=== PATIENT | female | born 1955 | race Caucasian/White ===

== ENCOUNTER → 2016-05-26 | Outpatient (CLI) | payer MEDICARE ==
[~2016-05-26] MED LIST: ALBUTEROL4 MG PO; AMARYL 2MG TABLE2 MG PO; ASPIRIN 81MG TA81 MG PO; AVANDAMET PO; BISOPROLOL5 MG PO; CHEWABLE ASPIRI81 MG PO; DICLOFENAC 50MG50 MG PO; FLEXERIL10 MG PO; GABAPENTIN300 MG PO; LISINOPRIL/HCTZ1 TA3 PO; METFORMIN1000 MG PO; NICOTINE PATCH1 EACH TD; ONGLYZA5 MG PO; PLAVIX75 MG PO; PRAVASTATIN SOD80 MG PO; PREDNISONE 20MG20 MG PO; TYLENOL 8 HOUR650 MG PO; ULTRAM50 MG PO
--- NOTE | 2016-06-10 14:24 | RADIOLOGY REPORT PS360 ---
US SOFT TISSUE HEAD/NECK, FNA/W GUIDANCE, US CYST ASPIRATION HISTORY: RT PAROTID MASS COMPARISON: CT scan of 05/06/2016 Ultrasound soft tissue head and neck: Prebiopsy ultrasound performed for biopsy planning demonstrates a 1.8 x 1 cm hypoechoic nodule within the right parotid gland posteriorly. In addition, there is a 1.3 x 0.6 cm complex mixed echogenic nodule within the left parotid gland. Ultrasound-guided fine-needle aspiration: Following obtaining informed consent and sonographic guidance with aseptic conditions and local anesthesia with 1% buffered lidocaine 3 passes were made into the right parotid nodule with a 25-gauge needle. 2 of these were sent for the routine FNA and one sent for flow cytometry. The patient tolerated the procedure well without evidence of immediate complication. Pathology: Negative for malignant cells. Negative flow cytometry IMPRESSION: Fine-needle aspiration of the right parotid gland most consistent with benign reactive lymphadenopathy. No malignant cells identified. Please see cytology report for further description.
== END ==
LOC: RAD 13:14
DX: K11.8 Other diseases of salivary glands (principal)